=== PATIENT | male | born 1960 | race Caucasian/White ===

== ENCOUNTER 2017-08-14 17:56 | Emergency (ER) | payer OTHER ==
[~2017-08-14] VITALS: Ht 177.8 cm; Wt 88.9 kg
[~2017-08-14 17:56] MED LIST: BACTRIM DS TAB1 EACH PO; CELEXA 20 MG TA20 MG; FLUCONAZOLE 10100 MG; NORCO 5-325 TA1 EACH PO; RAYTAZ; XANAX 0.5 MG0.5 M1; [UNRECOGNIZED DRUG - CODE]
[2017-08-14 18:01] VITALS: BP 112/83
[2017-08-14] MEDS ORDERED: PERCOCET 5-3251 EACH PO (18:54)
== END 2017-08-14 19:05 | disposition home or self-care (01) ==
LOC: ER 17:56
DX: S93.602A Unspecified sprain of left foot, initial encounter (principal); X58.XXXA Exposure to other specified factors, initial encounter; Y93.89 Activity, other specified; Y92.89 Other specified places as the place of occurrence of the external cause; Y99.8 Other external cause status; Z87.01 Personal history of pneumonia (recurrent); Z88.1 Allergy status to other antibiotic agents; Z88.8 Allergy status to other drugs, medicaments and biological substances

== ENCOUNTER 2018-06-04 20:20 | Inpatient (IN) | payer OTHER ==
[~2018-06-04] VITALS: Ht 177.8 cm; Wt 73.5 kg
[~2018-06-04 20:20] MED LIST changes: +PERCOCET 5-3251 EACH PO
[2018-06-04 20:21] VITALS: BP 140/89
[2018-06-04 21:00] LABS: URINE BLOOD NEGATIVE (Negative); URINE CLARITY CLEAR; URINE COLOR YELLOW; URINE GLUCOSE-RANDOM* NEGATIVE (Negative); URINE KETONES TRACE (Negative); URINE LEUKOCYTES-REFLEX NEGATIVE (Negative); URINE NITRITE-REFLEX NEGATIVE (Negative); URINE PROTEIN (DIPSTICK) NEGATIVE (Negative); URINE SPECIFIC GRAVITY >= 1.030 (1.005-1.035)
[2018-06-04 21:04] LABS: ICTOTEST (BILI CONFIRMATORY) Negative (Negative); URINE BILIRUBIN NEGATIVE (Negative)
[2018-06-04] MEDS ORDERED: DURAGESIC1 EACH TRANSDERM (21:04)
[2018-06-04 21:59] LABS: HEMOGLOBIN 13.7 gm/dL (14.0-18.0); MCH 31.7 pg (26.0-34.0); MCHC 34.3 g/dL (28.0-37.0); MCV 92.3 fL (80.0-100.0); RBC 4.33 mil/uL (4.50-6.00); RDW 12.4 % (10.5-14.5); WBC 6.4 thou/uL (4.0-11.0)
[2018-06-04 22:04] LABS: ANION GAP 12 mmol/L (7-16); BUN 45 mg/dL (7-18); CHLORIDE 99 mmol/L (98-107); CO2 25 mmol/L (21-32); CREATININE 3.2 mg/dL (0.7-1.3); GLUCOSE 94 mg/dL (74-106); SODIUM 136 mmol/L (136-145)
[2018-06-04] MEDS ORDERED: DESCOVY 200-251 EACH PO (22:05)
[2018-06-04] MEDS ORDERED: MELATONIN3 MG PO (22:06)
[2018-06-04] MEDS ORDERED: REMERON15 MG PO (22:06)
[2018-06-04] MEDS ORDERED: MUCINEX600 MG PO (22:07)
[2018-06-04] MEDS ORDERED: ZYPREXA2.5 MG PO (22:07)
[2018-06-04] MEDS ORDERED: POTASSIUM20 PO (22:08)
[2018-06-04] MEDS ORDERED: OMEPRAZOLE40 MG PO (22:08)
[2018-06-04] MEDS ORDERED: PREZCOBIX 8001 EACH PO (22:09)
[2018-06-04] MEDS ORDERED: VISTARIL 25 MG25 M1 PO (22:10)
[2018-06-04] MEDS ORDERED: ZOFRAN ODT4 MG DISSOLVE (22:11)
[2018-06-04 22:17] LABS: ALBUMIN 4.9 g/dL (3.4-5.0); LIPASE 62 U/L (73-393); SGOT 68 U/L (15-37); SGPT 35 U/L (30-65); TOTAL BILIRUBIN 1.8 mg/dL (<0.1-1.0); TOTAL PROTEIN 8.1 g/dL (6.4-8.2); TROPONIN-I <0.06 ng/mL (<0.06)
[2018-06-05] MEDS ORDERED: NORCO 10-325 T1 EACH PO (02:28)
[2018-06-05 02:34] VITALS: BP 101/55
[2018-06-05] MEDS ORDERED: ADVAIR HFA 230M12 GM INH (03:14)
[2018-06-05] MEDS ORDERED: PROAIR HFA8.5 GM INH (03:17)
[2018-06-05 04:11] VITALS: BP 112/70
--- NOTE | 2018-06-05 04:52 | NUR ---
PT WAS ADMITTED TO THE UNIT FROM THE ER IN A STABLE CONDITION.ADMISSION HX, ASSESSMENT COMPLETED.PT UP ADLIB IN ROOM.C/O NAUSEA,MANAGED WITH IV MED.PT RESTING ON HIS BED AT THIS TIME.CALL LIGHT WITHIN REACH.
[2018-06-05 05:19] LABS: MCH 31.6 pg (26.0-34.0); MCHC 32.5 g/dL (28.0-37.0); RBC 3.8 mil/uL (4.50-6.00); RDW 12.8 % (10.5-14.5); WBC 3.9 thou/uL (4.0-11.0)
[2018-06-05 05:30] LABS: MCV 97.3 fL (80.0-100.0)
[2018-06-05 05:45] LABS: CREATININE 2.2 mg/dL (0.7-1.3)
[2018-06-05 07:40] VITALS: BP 131/74
--- NOTE | 2018-06-05 14:35 | NUR ---
ASSESMENT COMPLETED. VSS. A/O. PAIN MANAGED BY MEDS ORDERED. NO NOTED SOA. NO NV. UP AD ARMANI. PT RESTING IN BED APPEARS COMFORTABLE. WILL CONT. TO MONITOR.
[2018-06-05 20:57] VITALS: BP 141/69
--- NOTE | 2018-06-05 22:34 | NUR ---
ASSUMED PT CARE 1899. PT ALERT AND ORIENTED. REASSESSMENT COMPLETE. VSS. PT DENIES N/V, PAIN AT THIS TIME. IV DRESSING C/D/I, NO SIGNS OF INFILTRATION. PT RESTING COMFORTALY IN BED. CALL LIGHT AND PERSONAL BELONINGS WITHIN REACH. WILL CONTINUE POC UNTIL EOS.
[2018-06-06 05:50] VITALS: BP 142/76
[2018-06-06 07:42] VITALS: BP 126/64
[2018-06-06 10:01] LABS: HEMATOCRIT 37.9 % (42.0-52.0); MCH 31.7 pg (26.0-34.0); MCHC 34.2 g/dL (28.0-37.0); MCV 92.4 fL (80.0-100.0); RBC 4.1 mil/uL (4.50-6.00); RDW 12.4 % (10.5-14.5); WBC 3.6 thou/uL (4.0-11.0)
[2018-06-06 10:10] LABS: CALCIUM 8.2 mg/dL (8.5-10.1); MAGNESIUM 1.7 mg/dL (1.8-2.4); POTASSIUM 3.9 mmol/L (3.5-5.1)
--- NOTE | 2018-06-06 10:44 | NUR ---
ASSUMED CARE OF PT AT 0700. ASSESSMENT COMPLETED. A&O,X4. C/O ABD PAIN AND INTERMITTENT NAUSEA, MEDS GIVEN ORDERED. REPORTING NEW/WORSENING LEFT FOREARM AND WRIST REDNESS, SWELLING, BLISTERS. PHYSICIAN NOTIFIED AND AWARE. NO OTHER SKIN CONCERNS. ROOM AIR. DENIES SOA OR CHEST PAIN. PT UP AD ARMANI. PT IN STABLE CONDITION. WILL CONTINUE TO MONITOR.
[2018-06-06] MEDS ORDERED: BACTRIM DS TAB1 EACH PO ×2 (12:51→13:23)
[2018-06-06] MEDS ORDERED: ZOFRAN ODT4 MG DISSOLVE (13:13)
--- NOTE | 2018-06-06 13:24 | HC ---
[facility] [place] [address] CONSULTATION Name: NICK MCINTOSH Room #: 422-P [facility] IN M.R.#: [id number] Admission: 06/05/18 ������������������ Attend Phys: Holden Sandoval MD Discharge: ������������������ Date of : 64 Report #: [id number] THIS REPORT FOR: //name// CC: Holden Land[facility] DATE OF SERVICE: 06/05/2018 TYPE OF REPORT: Infectious diseases consultation. HISTORY OF PRESENT ILLNESS: The patient was a 58-year old with underlying AIDS and hepatitis C, who [facility]. He has had approximately a 60-pound weight loss over the last year. Presents now with right upper quadrant pain, nausea and vomiting for the last 2 weeks. He has had temperature up to 101 degrees. No diarrhea. He does smoke cigarettes. No cough or sputum production. Appetite has been poor. No dysuria or frequency. No blood in his stool or urine. Denies any rashes or decubiti. Denies any adenopathy. He has been on 4-drug antiretroviral program for the last 3 years. He notes a CD4 count now is greater than 150 with undetectable HIV RNA. He denies any other opportunistic infections. PAST MEDICAL HISTORY: Hypertension, cryptococcal meningitis, pneumonia, Kaposi sarcoma, left femur fracture, C. difficile colitis, thrombocytopenia, vascular dementia, psychosis, depression, chronic pain syndrome, gastroesophageal reflux and tobacco use. FAMILY HISTORY: Lymphoma, colon cancer. SOCIAL HISTORY: Smoker of cigarettes, past alcohol use and past IV drug use and MSM. ALLERGIES: ABACAVIR, PIPERACILLIN, CEFAZOLIN, VANCOMYCIN, AMLODIPINE and TORADOL. MEDICATIONS: As noted on his MAR, which was reviewed including Prezcobix. I see no pneumocystis prophylaxis or MAC prophylaxis. I do not see any cryptococcal prophylaxis. REVIEW OF SYSTEMS: Ten-point review was negative other than what is described above. PHYSICAL EXAMINATION: VITAL SIGNS: Afebrile and hemodynamically stable. GENERAL: He was alert and cooperative. He was ambulatory. SKIN: Without rash or decubitus. No palpable adenopathy. HEENT: Eyes, without scleral icterus. Mouth [place] [address] CONSULTATION Name: NICK MCINTOSH Room #: 422-P [facility] IN .R.#: [id number] Admission: 06/05/18 ������������������ Attend Phys: Holden Sandoval MD Discharge: ������������������ Date of : 64 Report #: [id number] edentulous. NECK: Supple. No thyromegaly or mass. LUNGS: Clear. HEART: Regular, without murmur, gallop or rub. ABDOMEN: Soft and nontender. No hepatosplenomegaly or mass appreciated. EXTREMITIES: Without cyanosis, clubbing or edema. Cranial nerves intact. Strength in his upper and lower extremities normal. Sensation was diminished in his toes. Mood normal. LABORATORY STUDIES: Hemoglobin 13.7; white count 6.4 and platelet count 223,000. Creatinine initially 3.2 and now down to 2.2, sodium 134, potassium 4 and bicarbonate 25. Bilirubin 1.8. Liver function test otherwise normal. Urinalysis negative. RADIOLOGICAL DATA: Chest x-ray clear. Electrocardiogram normal. CT scan of the abdomen, fatty liver, right lower lobe nodule, 1.4 x 0.9 cm, noncalcified. No other intraabdominal findings. No ureteral obstruction. IMPRESSION: 1. A 58-year old with acquired immunodeficiency syndrome, on 4-drug antiretroviral program. He reports CD4 count over 150. Presents now with low-grade fever, nausea, vomiting and weight loss. In addition, have finding of a right lower lobe pulmonary nodule. The source of his weight loss is yet to be determined. We would consider infection versus malignancy versus human immunodeficiency virus wasting syndrome, although this would be less likely while on antiretroviral program and reportedly good control. 2. Acute kidney injury. RECOMMENDATIONS: We will need to hold his antiretroviral program until his renal function improves. If it does not improve within the next several days to a week, we will need to change his antiretroviral program and get him off of tenofovir. We will also screen further with CT scan of the chest with plan for a PET scan. Continue fluids and repeat his renal function test. Further laboratory studies including TB, fungal testing, Mycobacterium avium testing. We will continue to monitor for fever. Hold systemic antibiotics at this point. ��������������������������������������������� <ELECTRONICALLY SIGNED> ���������������������������������������� By: Jh Kimball MD ��������������������������������������������� 06/06/18 1324 1547 [id number] Jh Kimball MD /nt
--- NOTE | 2018-06-06 13:26 | EKG ---
[address] [place] [address] ELECTROCARDIOGRAM REPORT Name: NICK MCINTOSH Room #: 422- ADM IN M.R.#: [id number] ������������������ Admission: 06/05/18 ������������������ Attend Phys: Holden Sandoval MD Discharge: ������������������ Date of : 64 Report #: [id number] ����������������������������������������������������������������� [id number] THIS REPORT FOR: //name// [facility] ED Test Date: 2018-06-04 Test Time: 20:35:13 Pat Name: NICK MCINTOSH Department: Room: [facility] Gender: M Fryline Attendant: THONY : 1960 Requested By: Marilyn Medina Order Number: [id number] MD: Augusto Linda Measurements Intervals [place] Rate: 88 P: 37 [place]: 181 QRS: -7 QRSD: 93 T: 58 QT: 368 QTc: 446 Interpretive Statements Sinus rhythm Normal tracing Compared to ECG 09/03/2011 09:59:10 No significant changes Electronically Signed On 06-06-2018 13:26:22 CDT by Augusto Linda [email or web address] ��������������������������������������������� <ELECTRONICALLY SIGNED> ���������������������������������������� By: Augusto Linda MD, [facility] ��������������������������������������������� 06/06/18 1326 34 34 Augusto Linda MD, [facility] /EPI
[2018-06-06 13:30] VITALS: BP 126/64
[2018-06-07 08:06] LABS: CD3 % 62.5 % (57.5-86.2); CD4 % 14.5 % (30.8-58.5); CD4:CD8 0.31 (0.92-3.72); CD8 % 46.2 % (12.0-35.5)
[2018-06-08 17:10] LABS: HISTOPLASMA MYCELIAL-ID Negative (Negative)
[2018-06-09 00:06] LABS: HISTOPLASMA MYCELIAL-CF Negative (Neg:<1:2)
== END 2018-06-06 15:12 | disposition home or self-care (01) | DRG 977 ==
LOC: ER 20:20 → EROBS 06-05 00:57 → 4E 06-05 02:51
PROVIDERS: Nurse Practitioner Family; Specialist; Student in an Organized Health Care Education/Training Program; ADMIT Internal Medicine
DX: K52.9 Noninfective gastroenteritis and colitis, unspecified (principal); B20 Human immunodeficiency virus [HIV] disease; N17.9 Acute kidney failure, unspecified; C46.9 Kaposi's sarcoma, unspecified; I10 Essential (primary) hypertension; G89.4 Chronic pain syndrome; F01.50 Vascular dementia, unspecified severity, without behavioral disturbance, psychotic disturbance, mood disturbance, and anxiety; B18.2 Chronic viral hepatitis C; K21.9 Gastro-esophageal reflux disease without esophagitis; F32.9 Major depressive disorder, single episode, unspecified; R59.1 Generalized enlarged lymph nodes; F17.210 Nicotine dependence, cigarettes, uncomplicated; R91.1 Solitary pulmonary nodule; Z87.01 Personal history of pneumonia (recurrent); Z88.1 Allergy status to other antibiotic agents; Z88.8 Allergy status to other drugs, medicaments and biological substances; Z80.0 Family history of malignant neoplasm of digestive organs
CPT/HCPCS: 10084

== ENCOUNTER 2018-10-14 17:11 | Emergency (ER) | payer OTHER ==
[~2018-10-14] VITALS: Ht 177.8 cm; Wt 67.1 kg
--- NOTE | ~2018-10-14 | EMS ---
[address] [address] EMS Patient Care Report Name: NICK MCINTOSH Room #: DEP KRIS Kirk#: [id number] Admission: 10/14/18 Attend Phys: Discharge: 10/14/18 Date of : 64 Report #: [id number] THIS REPORT FOR: //name// Report Transmitted: 10/18/2018 08:54 EMS Care Summary [place]/[facility] Incident [id number] @ 10/14/2018 16:50 Incident Location [id number] [place] [address] RD [address] Patient ANKITA MCINTOSH Male, 58 Years 1960 Patient Address [id number] [place] [address] [address] [place] [address] Patient History Hepatitis C (Without Hepatic Coma),Human Immunodeficiency Virus Disease (HIV/AIDS),Hip Fracture, Patient Allergies Other drug allergy, Patient Medications Vicodin, Chief Complaint VOMITING Disposition Transported No Lights/[place] Dispatch Reason Chest Pain (Non-Traumatic) Transported To [facility] Narrative RESPONDED TO SICK THAT TURNED INTO CHEST PAIN AT [facility]. UPON ARRIVAL PT MET EMS OUTSIDE, ALERT AND ORIENTED. FF REPORTS PT HAS [address] [address] EMS Patient Care Report Name: NICK MCINTOSH Room #: DEP ER Reagan#: [id number] Admission: 10/14/18 Attend Phys: Discharge: 10/14/18 Date of : 64 Report #: [id number] HAD ISSUES WITH VOMITING SINCE MAY, PT REPORTS ACID REFLUX IN HIS CHEST SINCE YESTERDAY THAT IS BOTHERING HIM AND THAT IS WHY HE CALLED AN AMBULANCE TODAY. PT DENIES SOA OR CARDIAC CHEST PAIN. PT WALKED TO AMBULANCE. VITALS AND 3 LEAD OBTAINED. PT TRANSPORTED NONEMERGENCY TO [facility]. PT WALKED FORM AMBULANCE TO BED. REPORT GIVEN TO NURSE. Initial Vitals @16:59P: 76,SpO2: 98, @17:04P: 76,R: 14,BP: 124/76,CO: 1,SpO2: 98, @16:59P: 78,R: 14,BP: 153/83,Pain: 2/10,GCS: 15,CO: 0,SpO2: 95,Revised Trauma: 12, Assessments @16:58MENTAL:Time Oriented,Person Oriented,Event Oriented,Place Oriented,SKIN:HEENT:Head/Face: No Abnormalities,Neck/Airway: No Abnormalities,LUNG SOUNDS:General: Nausea,General: Vomiting,ABDOMEN:General: Nausea,General: Vomiting,PELVIS//GI:No Abnormalities,EXTREMITIES:Left Arm: No Abnormalities,Right Arm: No Abnormalities,Left Leg: No Abnormalities,Right Leg: No Abnormalities,PULSE:NEURO:No Abnormalities,@17:05MENTAL:No Abnormalities,SKIN:No Abnormalities,HEENT:Head/Face: No Abnormalities,Eyes: No Abnormalities,Neck/Airway: No Abnormalities,LUNG SOUNDS:General: No Abnormalities,Left Upper: No Abnormalities,Right Upper: No Abnormalities,Left Lower: No Abnormalities,Right Lower: No Abnormalities,ABDOMEN:General: No Abnormalities,Left Upper: No Abnormalities,Right Upper: No Abnormalities,Left Lower: No Abnormalities,Right Lower: No Abnormalities,PELVIS//GI:No Abnormalities,EXTREMITIES:Left Arm: No Abnormalities,Right Arm: No Abnormalities,Left Leg: No Abnormalities,Right Leg: No Abnormalities,PULSE:NEURO:No Abnormalities, Impression Gastro-esophogeal reflux disease (GERD) Procedures @16:58ALS AssessmentResponse: UnchangedSucceeded@17:053-Lead ECGResponse: UnchangedSucceeded Timeline 16:48,Call Received 16:48,Dispatch Notified 16:50,Dispatched 16:51,En Route 16:57,On Scene 16:58,At Patient 16:58,ALS Assessment,Response: UnchangedSucceeded, 16:59,BP: 153/83 M,PULSE: 78,RR: 14 R,SPO2: 95 Ox,ETCO2: ,BG: ,PAIN: 2,GCS: 15, 16:59,BP: / M,PULSE: 76,RR: R,SPO2: 98 Ox,ETCO2: ,BG: ,PAIN: ,GCS: , [facility] [address] [place] [address] EMS Patient Care Report Name: NICK MCINTOSH Room #: DEP Reagan#: [id number] Admission: 10/14/18 Attend Phys: Discharge: 10/14/18 Date of : 64 Report #: [id number] 16:59,Depart Scene 17:04,BP: 124/76 M,PULSE: 76,RR: 14 R,SPO2: 98 Ox,ETCO2: ,BG: ,PAIN: ,GCS: , 17:05,3-Lead ECG,Response: UnchangedSucceeded, 17:09,At Destination 17:30,Call Closed Disclaimer v1.1 Copyright 2019 [employer] This EMS Care Summary contains data elements from the applicable legal record (which may be displayed differently). It is designed to provide pertinent information for the following purposes: continuity of care, clinical quality, and state data reporting. The complete legal record is available to ED staff and administrators of the receiving hospital in [employer] Patient Tracker. All data is provided "as is."
[~2018-10-14 17:11] MED LIST changes: +ADVAIR HFA 230M12 GM INH; +DESCOVY 200-251 EACH PO; +DURAGESIC1 EACH TRANSDERM; +MELATONIN3 MG PO; +MUCINEX600 MG PO; +NORCO 10-325 T1 EACH PO; +OMEPRAZOLE40 MG PO; +POTASSIUM20 PO; +PREZCOBIX 8001 EACH PO; +PROAIR HFA8.5 GM INH; +REMERON15 MG PO; +VISTARIL 25 MG25 M1 PO; +ZOFRAN ODT4 MG DISSOLVE; +ZYPREXA2.5 MG PO
[2018-10-14 17:49] LABS: ABSOLUTE NEUTROPHILS 1.8 thou/uL (1.4-8.2); EOSINOPHILS 3.3 % (0.0-3.0); HEMATOCRIT 37.5 % (42.0-52.0); HEMOGLOBIN 12.9 gm/dL (14.0-18.0); LYMPHOCYTES 43.3 % (24.0-44.0); MCH 32.3 pg (26.0-34.0); MCHC 34.4 g/dL (28.0-37.0); MCV 94.1 fL (80.0-100.0); PLATELET COUNT 188 thou/uL (150-400); POLYS 44.4 % (36.0-66.0); RBC 3.99 mil/uL (4.50-6.00); RDW 13.2 % (10.5-14.5); WBC 4.1 thou/uL (4.0-11.0)
[2018-10-14 17:53] LABS: CREATININE 1.1 mg/dL (0.7-1.3); POTASSIUM 3.4 mmol/L (3.5-5.1)
[2018-10-14 18:00] LABS: ALBUMIN 3.8 g/dL (3.4-5.0); TOTAL BILIRUBIN 0.5 mg/dL (<0.1-1.0); TOTAL PROTEIN 6.8 g/dL (6.4-8.2)
[2018-10-14 18:20] LABS: URINE BLOOD NEGATIVE (Negative); URINE CLARITY CLEAR; URINE COLOR YELLOW; URINE GLUCOSE-RANDOM* NEGATIVE (Negative); URINE KETONES NEGATIVE (Negative); URINE LEUKOCYTES-REFLEX NEGATIVE (Negative); URINE NITRITE-REFLEX NEGATIVE (Negative); URINE PROTEIN (DIPSTICK) TRACE (Negative); URINE SPECIFIC GRAVITY >= 1.030 (1.005-1.035)
[2018-10-14 18:21] LABS: ICTOTEST (BILI CONFIRMATORY) Negative (Negative); URINE BILIRUBIN NEGATIVE (Negative)
[2018-10-14] MEDS ORDERED: MELATONIN3 MG PO (18:33)
[2018-10-14] MEDS ORDERED: DRONABINOL5 MG PO (18:33)
[2018-10-14] MEDS ORDERED: PRILOSEC OTC20 MG PO (19:19)
[2018-10-14] MEDS ORDERED: ONDANSETRON ODT8 MG PO (19:19)
[2018-10-14 20:50] VITALS: BP 125/72
--- NOTE | 2018-10-15 18:08 | EKG ---
[place] [address] [facility] [place] [address] ELECTROCARDIOGRAM REPORT Name: NICK MCINTOSH [id number] Admission: 10/14/18 Attend Phys: Discharge: 10/14/18 Date of : 64 Report #: [id number] THIS REPORT FOR: //name// [facility] ED Test Date: 2018-10-14 Test Time: 18:52:56 Pat Name: NICK MCINTOSH Department: Room: Gender: M Interpretive Program Coordinator: WG : 1960 Requested By: Jh Riggs Order Number: [id number] MD: Augusto Linda Measurements Intervals [place] Rate: 47 P: 13 [place]: 176 QRS: 19 QRSD: 93 T: 57 QT: 442 QTc: 391 Interpretive Statements Sinus bradycardia Compared to ECG 06/04/2018 20:35:13 Heart rate has slowed Electronically Signed On 10-15-2018 18:08:12 CDT by Augusto Linda [email or web address] <ELECTRONICALLY SIGNED> By: Augusto Linda MD, [facility] 10/15/18 1808 185 51 Augusto Linda MD, [facility] /EPI
== END 2018-10-14 20:56 | disposition home or self-care (01) ==
LOC: ER 17:11
PROVIDERS: Emergency Medicine
DX: R11.2 Nausea with vomiting, unspecified (principal); B19.20 Unspecified viral hepatitis C without hepatic coma; R10.13 Epigastric pain; I10 Essential (primary) hypertension; G89.4 Chronic pain syndrome; K21.9 Gastro-esophageal reflux disease without esophagitis; F17.210 Nicotine dependence, cigarettes, uncomplicated; Z88.1 Allergy status to other antibiotic agents; Z88.8 Allergy status to other drugs, medicaments and biological substances; Z88.6 Allergy status to analgesic agent; Z79.899 Other long term (current) drug therapy

== ENCOUNTER 2018-12-24 10:33 | Emergency (ER) | payer OTHER ==
[~2018-12-24] VITALS: Ht 172.7 cm; Wt 65.8 kg
[~2018-12-24 10:33] MED LIST changes: +DRONABINOL5 MG PO; +ONDANSETRON ODT8 MG PO; +PRILOSEC OTC20 MG PO
[2018-12-24 12:03] LABS: ABSOLUTE NEUTROPHILS 2.6 thou/uL (1.4-8.2); BASOPHILS 0.7 % (0.0-2.0); EOSINOPHILS 1.4 % (0.0-3.0); HEMATOCRIT 37.9 % (42.0-52.0); HEMOGLOBIN 12.7 gm/dL (14.0-18.0); LYMPHOCYTES 32.9 % (24.0-44.0); MCH 32.2 pg (26.0-34.0); MCHC 33.6 g/dL (28.0-37.0); MCV 95.7 fL (80.0-100.0); MONOCYTES 8.9 % (1.0-8.0); PLATELET COUNT 209 thou/uL (150-400); POLYS 56.1 % (36.0-66.0); RBC 3.96 mil/uL (4.50-6.00); RDW 12.3 % (10.5-14.5); WBC 4.7 thou/uL (4.0-11.0)
[2018-12-24 12:13] LABS: CALCIUM 9.1 mg/dL (8.5-10.1); POTASSIUM 4.2 mmol/L (3.5-5.1)
[2018-12-24 12:18] LABS: URIC ACID* 5.3 mg/dL (2.6-7.2)
[2018-12-24] MEDS ORDERED: NORCO 5-325 TA1 EAC1 PO (12:19)
[2018-12-24 13:04] VITALS: BP 119/79
== END 2018-12-24 13:34 | disposition home or self-care (01) ==
LOC: ER 10:33
PROVIDERS: Physician Assistant
DX: S92.355A Nondisplaced fracture of fifth metatarsal bone, left foot, initial encounter for closed fracture (principal); I10 Essential (primary) hypertension; K21.9 Gastro-esophageal reflux disease without esophagitis; F32.9 Major depressive disorder, single episode, unspecified; F17.210 Nicotine dependence, cigarettes, uncomplicated; Z21 Asymptomatic human immunodeficiency virus [HIV] infection status; Z88.0 Allergy status to penicillin; Z88.1 Allergy status to other antibiotic agents; Z88.6 Allergy status to analgesic agent; Z88.8 Allergy status to other drugs, medicaments and biological substances; W01.0XXA Fall on same level from slipping, tripping and stumbling without subsequent striking against object, initial encounter; Y93.89 Activity, other specified; Y92.128 Other place in nursing home as the place of occurrence of the external cause; Y99.8 Other external cause status

== ENCOUNTER 2019-03-04 05:53 | Inpatient (IN) | payer OTHER ==
[2019-02-24 10:40] LABS: ABSOLUTE NEUTROPHILS 4.2 thou/uL (1.4-8.2); BASOPHILS 0.4 % (0.0-2.0); EOSINOPHILS 0.2 % (0.0-3.0); HEMATOCRIT 40.2 % (42.0-52.0); HEMOGLOBIN 13.6 gm/dL (14.0-18.0); LYMPHOCYTES 20.8 % (24.0-44.0); MCH 32.1 pg (26.0-34.0); MCHC 33.7 g/dL (28.0-37.0); MCV 95.3 fL (80.0-100.0); MONOCYTES 4.9 % (1.0-8.0); PLATELET COUNT 233 thou/uL (150-400); POLYS 73.7 % (36.0-66.0); RBC 4.22 mil/uL (4.50-6.00); RDW 12.7 % (10.5-14.5); WBC 5.6 thou/uL (4.0-11.0)
[2019-02-24 10:51] LABS: ALBUMIN 4.3 g/dL (3.4-5.0); CALCIUM 9.4 mg/dL (8.5-10.1); CREATININE 1.1 mg/dL (0.7-1.3); POTASSIUM 4.1 mmol/L (3.5-5.1); TOTAL BILIRUBIN 0.3 mg/dL (<0.1-1.0); TOTAL PROTEIN 7.3 g/dL (6.4-8.2)
[2019-02-24 10:52] LABS: APTT 26.6 Seconds (24.5-32.8); PROTIME 10.2 Seconds (9.3-11.4)
[2019-02-24 14:34] LABS: URINE BILIRUBIN NEGATIVE (Negative); URINE BLOOD NEGATIVE (Negative); URINE CLARITY CLEAR; URINE COLOR YELLOW; URINE GLUCOSE-RANDOM* NEGATIVE (Negative); URINE KETONES NEGATIVE (Negative); URINE LEUKOCYTES-REFLEX NEGATIVE (Negative); URINE NITRITE-REFLEX NEGATIVE (Negative); URINE PROTEIN (DIPSTICK) NEGATIVE (Negative); URINE SPECIFIC GRAVITY >= 1.030 (1.005-1.035); URINE UROBILINOGEN 0.2 E.U./dl (0.2-1.0)
--- NOTE | 2019-02-24 16:10 | EKG ---
[place] [address] [address] [address] ELECTROCARDIOGRAM REPORT Name: NICK MCINTOSH Room #: PRE IN ..#: [id number] Admission: Attend Phys: Kirill Saucedo MD Discharge: Date of : 64 Report #: [id number] THIS REPORT FOR: //name// [facility] Test Date: 2019-02-24 Test Time: 10:33:02 Pat Name: NICK MCINTOSH Department: Room: Gender: M Stunt Man: HELENA ACE : 1960 Requested By: Kirill Saucedo Order Number: [id number] MD: Jordan Garza Measurements Intervals [place] Rate: 88 P: 50 [place]: 158 QRS: -24 QRSD: 82 T: 62 QT: 339 QTc: 410 Interpretive Statements Sinus rhythm Consider left ventricular hypertrophy Anterior ST elevation, probably due to LVH Compared to ECG 10/14/2018 18:52:56 Left ventricular hypertrophy now present ST (T wave) deviation now present Sinus bradycardia no longer present Electronically Signed On 02-24-2019 16:10:26 MARINE EQUIPMENT ENGINEER by Jordan Garza [email or web address] <ELECTRONICALLY SIGNED> By: Jordan Garza MD 02/24/19 1610 1033 1033 Jordan Garza MD /EPI
[2019-03-04] VITALS (28 sets, daily range): BP systolic 124–154; BP diastolic 62–87
[~2019-03-04] VITALS: Ht 177.8 cm; Wt 64.4 kg
--- NOTE | ~2019-03-04 | O ---
[facility] [place] [address] OPERATIVE REPORT Name: NICK MCINTOSH Room #: 215-P [facility] IN M.R.#: [id number] Admission: 03/04/19 Attend Phys: Kirill Saucedo MD Discharge: 03/11/19 Date of : 64 Report #: [id number] THIS REPORT FOR: //name// CC: FAM unknown Kirill Saucedo DATE OF SERVICE: 03/04/2019 PREOPERATIVE DIAGNOSIS: Pulmonary nodule, right lower lobe. 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 OPERATION: Bronchoscopy, right video-assisted thoracoscopy, right thoracotomy with lower lobectomy. SURGEON: Kirill Saucedo MD CATTLE KILLER: BRITTNEY Catalan. ANESTHESIA: General. INDICATIONS: The patient is a 59-year-old, seen for Dr. Pepper. The patient has a right lower lobe pulmonary nodule that has been seen to grow on serial x-rays. FINDINGS AND TECHNIQUE: After general anesthesia was established, flexible diagnostic bronchoscopy was performed. No endobronchial lesions were noted. Double lumen endotracheal tube was placed and the patient was positioned with right side up. Exposure was obtained through typical video-assisted thoracoscopy ports. I identified what I thought was a lesion within the pulmonary parenchyma in the lower lobe, but I was not confident enough to perform a wedge resection. Therefore, exposure was extended to perform a posterolateral thoracotomy using a rib sparing, nerve sparing approach and entering through the fifth interspace. The lesion in the lower lobe was ascertained and then a wedge resection was done. This was submitted for frozen section and a diagnosis of malignancy was obtained. With this information, the lobectomy was performed. The fissures were exploited to expose the interlobar pulmonary artery. Pulmonary arterial branches to the lower lobe were ligated and divided. Pulmonary venous branches to the lower lobe were stapled and divided. The bronchus was circum-dissected and stapled and the lobe was submitted for pathologic consideration. [facility] [address] [place] [address] OPERATIVE REPORT Name: NICK MCINTOSH Room #: 215-P [facility] IN .R.#: [id number] Admission: 03/04/19 Attend Phys: Kirill Saucedo MD Discharge: 03/11/19 Date of : 64 Report #: [id number] Bronchial stump was tested and found to be secure. Middle lobe was tacked to lower lobe after hilar lymph nodes were harvested for permanent pathology. Two chest tubes were brought through separate stab wounds and the chest was closed to maintain the nerve sparing, rib sparing approach. The patient tolerated all of this well and was taken to the recovery area in good condition. All counts reported as correct. By: [id number] Kirill Saucedo MD /nt
[~2019-03-04 05:53] MED LIST changes: +ACETAMINOPHEN500 M1 PO; +DURAGESIC1 EAC2 TOP; +HYDROCODON-ACE1 EAC8 PO; +MARINOL5 MG PO; +NORCO 5-325 TA1 EAC1 PO; +OMEPRAZOLE 20 M20 M1 PO; +ZOFRAN8 MG PO
--- NOTE | 2019-03-04 07:24 | NUR ---
CONSULTED TO PLACE A PICC PRE-OP. THIS PATIENT WILL BE GOING TO IVU POST OP AND A TRIPLE LUMEN PICC WAS CHOOSEN. THE LEFT ARM WAS CHOOSEN PER PATIENTS REQUEST. THE LEFT UPPER ARM BASILIC VEIN WAS WIDLEY PATENT AND SHALLOW. A #5F TRIPLE LUMEN PICC WAS TRIMMED TO 48CM AND PLACED PER HOSPITAL POLICY AFTER A BEDSIDE TIMEOUT WAS COMPLETED. A STAT CHEST XRAY WAS ORDERED AND CONFIRMED TO BE IN GOOD POSITION FOR USE BY DR. DICKINSON. LINE SECURED AND RELEASED FOR USE
--- NOTE | 2019-03-04 13:35 | NUR ---
Pt admitted to ICU from PACU. Pt came through PAC for scheduled surgery today with Dr Saucedo. Pt alert and oriented upon arrival. Pt reporting incisional pain and pain at chest tube site. MOTOR VEHICLE TECHNICIAN pump with Fentanyl infusing was started in the recovery room. Fentanyl infusing via a PICC line in the left upper arm. Sinus rhythm. Thoracotomy incision drsg is dry/intact. Right chest tube is patent to -20 cm of suction per [facility] drain. Requesting ice chips. Right radial arterial line on an armboard is positional and difficult to obtain accurate reading despite manipuation and flushing.
--- NOTE | 2019-03-04 15:39 | NUR ---
PT ADMITTED RELATED TO BRONCHOSCOPY,VIDEO ASSISTED THOROSCOPY, RIGHT LUNG. CM REVIEWED CHART AND SPOKE WITH CARE TEAM. CARE TEAM INDICATED THAT PT IS HIV POSITIVE AND THERE WERE TWO MEDICATIONS THAT WE AREN'T ABLE TO PROVIDE PT (PREZCOBIX AND DESCOVY). THEY ASKED FOR ASSISTANCE IN GETTING THESE MEDS FROM PT'S AL [facility]. CM MET WITH PT AT BEDSIDE. HE IS A&O X4. CM ROLE INTRODUCED. PT INDICATED HE LIVES AT [facility] AND HAD USED A CANE TO ASSIST WITH MOBILITY ACCESS RN. PT INDICATED HE WAS FINE WITH CM ASSISTING IN GETTING HIS MEDS FROM THE FACILITY. PT'S BROTHER/DPOA IS PRESENT AND WILLING TO PICK MEDS UP IF HE NEEDS TO. CM CALLED AND SPOKE WITH TALYA IVORY [facility] DIRECTOR AND SHE INDICATED THAT PT'S BROTHER COULD PICK THE TWO MEDS UP. SHE JUST ASKED THAT THE BOTTLES AND WHATEVER MEDICATION IS LEFT ARE RETURNED TO THEM UPON PT'S RETURN. PT'S BROTHER PT PICK MEDS UP AND BRING TO [facility]. PT INDICATED HE PLANS TO RETURN BACK TO [facility] ONCE MEDICALLY STABLE. CM TO FOLLOW INDICATED WITH DC PLANNING.
--- NOTE | 2019-03-04 19:15 | NUR ---
utilization management manager facilitated getting pt's home medications brought to the hospital. Pt's brother/DPOA picked them up and pharmacy verified the meds/dose. Pt signed the consent form provided by pharmacy for use of home medications which was placed on the chart and meds administered to the patient. Report given to RN assuming care. Arterial line will not flush. Oncoming RN aware and may dc,
[2019-03-04] MEDS ORDERED: PERCOCET 7.5-31 EAC1 PO (23:02)
[2019-03-05] VITALS (15 sets, daily range): BP systolic 105–139; BP diastolic 49–72
[2019-03-05 05:02] LABS: HEMATOCRIT 37.9 % (42.0-52.0); HEMOGLOBIN 12.5 gm/dL (14.0-18.0); MCH 31.9 pg (26.0-34.0); MCHC 32.9 g/dL (28.0-37.0); MCV 96.8 fL (80.0-100.0); RBC 3.91 mil/uL (4.50-6.00); WBC 11.3 thou/uL (4.0-11.0)
[2019-03-05 05:04] LABS: CALCIUM 8.7 mg/dL (8.5-10.1); POTASSIUM 4.7 mmol/L (3.5-5.1)
--- NOTE | 2019-03-05 07:30 | NUR ---
ASSUMED CARE OF PT AT 1900. PT ON FENTANYL COTTON CANDY MAKER PUMP SINCE SURGERY YESTERDAY. PT CONTINUED TO RATE PAIN 7-8 THROUGHOUT THE NIGHT. PT ENCOURAGED TO PUSH HIS COTTON CANDY MAKER BUTTON MORE OFTEN WHEN HE WAS HAVING PAIN AT THAT LEVEL. PT APPEARS RELAXED AND SAID HIS 8/10 PAIN WAS "NOT EXCRUCIATING". WILL CONTINUE TO MONITOR.
--- NOTE | 2019-03-05 12:22 | NUR ---
ASSUMED CARE @ 0700 03/05/18, PT ASSESSMENTS AND VSS COMPLETE PER ICU PROTOCOL. DR CONNOLLY HERE TO ROUND, CCU ORDERS PLACED, REPORT GIVEN TO JAYY MALIK, PT TRANSPORTED PER WHEELCHAIR WITH THE AID OF NURSING STAFF. COREMAKER FLOOR CLEARED AT BEDSIDE WITH RECIEVING HELENA HOPE.
--- NOTE | 2019-03-05 12:42 | NUR ---
TO UNIT FROM ICU ROOM 245, REPORT FROM RN. ORIENTED TO UNIT. CT TO -20CM WALL SUCTION. FENTANYL FISHERIES MANAGEMENT BIOLOGIST, BUTTON REACHABLE. GIVEN URINAL; HASN'T VOIDED SINCE MICHAEL NOEL'Benita AT 1200. SR PER TELE. ROOM AIR. WILL CONTINUE TO FOLLOW CLOSELY.
[2019-03-06 00:18] VITALS: BP 117/73
--- NOTE | 2019-03-06 04:48 | NUR ---
ASSUMED PT CARE AT 1900. VSS, GETS CORY N THE 50s WITH SLEEP. PT IS WPRRIED THAT HE WOULD NOT HEAL WELL OR SOMETHING MAY GO WRONG, PT WAS REASSURED AND ENCOURAGED TO PRAY NEEDED. PAIN STILL MANAGED WITH ORACLE SOA CONSULTANT PUMP. PUMP CLEARED Q4 HOURS. CHEST TUBE IN PLACE, DRY SANGEUNOUS DRAINAGE ON TEGADERM DRESSING, DRESSING STILL INTACT. PT IS STABLE, NO FURTHER COMPLAINTS WILL CONTINUE TO MONITOR PER POC.
[2019-03-06 05:41] VITALS: BP 97/59
[2019-03-06 07:50] VITALS: BP 121/59
--- NOTE | 2019-03-06 11:45 | NUR ---
ASSUMED CARE AT 0700, SHIFT ASSESSMENT DONE, MEDS GIVEN, VSS. DENIES PAIN, NAUSEA, VOMIITNG. CHEST TUBE TO RIGHT BACK, SITE HAS DRY BLOODY DRAINAGE, DENIES ANY SOB THIS AM. DR CATHLEEN NOEL'S WALL SUCTION, IS ON WATER SEAL NOW. HAS A FENTTANYL FOOD PRODUCTION ASSOCIATE, SEE DOCUMENATION. NSR ON TELE. SURGICAL SITE CLEAN, TRY, INTACT. WILL CONTINUE TO ASSESS AND ASSIST WITH ADLs NEEDED.
[2019-03-06 12:00] VITALS: BP 103/63
[2019-03-06 16:00] VITALS: BP 118/77
[2019-03-06 17:25] LABS: CALCIUM 8.7 mg/dL (8.5-10.1); CREATININE 0.9 mg/dL (0.7-1.3); MAGNESIUM 1.8 mg/dL (1.8-2.4); POTASSIUM 4.1 mmol/L (3.5-5.1)
--- NOTE | 2019-03-06 19:21 | NUR ---
ASSUMED CARE OF PATIENT AT 1500 FROM HELENA ABDULLAHI. PATIENT RESTING COMFORTABLY IN BED WITH CHEST TUBE IN PLACE DRAINING TO GRAVITY. PATIENT DID SIT UP AT THE BEDSIDE FOR DINNER. PATIENT ON FENTANYL SUPERVISOR WALL MIRROR DEPARTMENT PUMP WITH PAIN CONSISTENTLY AT 6-7/10. PATIENT HAD INTERMITTENT EPISODES OF VTAC RUNS 2-[address] CONNOLLY NOTIFIED[address] STAT BMP AND MAG ORDERED AND WNL. PATIENT TO CONTINUE WITH POC.
[2019-03-06 19:58] VITALS: BP 111/58
[2019-03-07 03:54] VITALS: BP 115/58
--- NOTE | 2019-03-07 04:40 | NUR ---
NO OVERNIGHT EVENTS. PT. RESTED WELL THROUGHOUT THE NIGHT. ONE COMPLAINT OF NAUSEA THIS AM. ASSESSMENT AND VITAL SIGNS CHARTED. SEE CUSTOMER SERVICE ASSOCIATE DOCUMENTATION. CONTINUE TO FOLLOW POC. WILL CONTINUE TO MONITOR.
[2019-03-07 08:00] VITALS: BP 140/73
[2019-03-07 12:41] VITALS: BP 129/78
[2019-03-07 16:00] VITALS: BP 117/72
--- NOTE | 2019-03-07 17:07 | PATH ---
[facility] [place] [address] PATHOLOGY RPT PROCEDURE Name: ABDI OSEGUERA Room #: 215-P ADM IN M.R.#: [id number] Admission: 03/04/19 Date of : 64 Discharge: Report #: [id number] Path Case #: [id number] [facility] Accession Number: [id number] . 01 Material submitted: . PART A: lung - PULMONARY NODULE RIGHT LOWER LUNG LOBE - FS. Modifiers: right, lower lobe PART B: lung - RIGHT LOWER LOBE LUNG. Modifiers: right, lower lobe . 01 Clinical history: . Pulmonary nodule, right lower lung lobe. . 02 Frozen section diagnosis: . INTRAOPERATIVE CONSULTATION WITH FROZEN SECTION: (Dr. Yair Harvey) . FSA1. Right lower lobe pulmonary nodule: - Atypical lesion with neuroendocrine features - defer to permanent sections. . Findings relayed to Dr. Saucedo at the time of the procedure. (DANIELM:nish; 03/04/2019) . . FROZEN SECTION GROSS DESCRIPTION: A. Received fresh, labeled, "Abdi Oseguera - Pulmonary nodule right lower lung lobe", is a wedge biopsy of lung which measures 6.0 x 4.0 x 0.8 cm. A staple line is present which measures approximately 4.0 cm in greatest dimension. The pleural surface is smooth and dark red. The pleural surface is inked green. Cut sections through the specimen show a fairly well-circumscribed and somewhat soft nodule, which measures 1.3 cm in greatest dimension. The nodule is pink-kasper and it is located 0.3 cm away from the overlying pleural surface. A lifeline representatives section of the nodule is frozen. The frozen remnant is submitted in A1. In addition, a smear is made of the nodule. The remainder of the nodule is submitted in block A2. Block A3 contains lifeline representatives sections of normal lung parenchyma away from the nodule. (SKM:nish; 03/04/2019) . . Frozen section performed at [facility], [facility] [address], [place] [address]. [facility] . 02 Diagnosis: A. 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 [facility] [place] [address] PATHOLOGY RPT PROCEDURE Name: ABDI OSEGUERA Room #: 215-P ADM IN M.R.#: [id number] Admission: 03/04/19 Date of : 64 Discharge: Report #: [id number] Path Case #: [id number] - Stapled margins free of malignancy. - Visceral pleural margin is 3 mm away. . B. Lung, right lower lobe lung, steatosis: - Bronchial margin free of malignancy. - Vessels showing no evidence of malignancy. - Seven (7) hilar lymph nodes showing reactive changes along with abundant pigmented macrophages without any malignancy (0/7). - Background lung parenchyma showing congestion and reactive changes without any evidence of malignancy. . (IUV:mml; 03/07/2019) . . . Surgical Pathology Cancer Case Summary . Protocol posting date: July 2016 . LUNG: Procedure- Lobectomy Specimen Laterality- Right Tumor Site- Lower lobe of lung Tumor Size- 1.3 cm in greatest dimensions Tumor Focality- Single tumor Histologic Type- Atypical carcinoid tumor Histologic Grade- G2: Moderately differentiated Spread Through Air Spaces- Not identified Visceral Pleura Invasion- Not identified Lymphovascular Invasion- Not identified Direct Invasion of Adjacent Structures- No adjacent structures present Margins- All margins are uninvolved by tumor Margins examined: Bronchial, Vascular and Visceral Pleura Distance of invasive carcinoma from closest margin (centimeters): 0.3 cm Specify closest margin: Visceral pleura Treatment Effect- No known presurgical therapy Regional Lymph Nodes- Number of Lymph Nodes Examined: 7 Specify david station(s) examined: Hilar nodes . . Pathologic Stage Classification (pTNM, AJCC 8th Edition) . TNM Descriptors- None Primary Tumor (pT) pT1b: Tumor >1 cm but =2 cm in greatest dimension Regional Lymph Nodes (pN) pN0: No regional lymph node metastasis . Distant Metastasis (pM): pMx (unknown) [address] [address] PATHOLOGY RPT PROCEDURE Name: ArianeANDRESABDI BUTT Room #: 215-P [facility] IN M.R.#: [id number] Admission: 03/04/19 Date of : 64 Discharge: Report #: [id number] Path Case #: [id number] . (IUV:mml; 03/07/2019) [facility] 03/07/2019 1551 Local . 02 Comment: Multiple properly-controlled immunohistochemical stains are performed to characterize the neoplasm: . Synaptophysin: The tumor shows strong granular reactivity Chromogranin: The tumor shows strong granular reactivity AE1/AE3: The tumor is non-reactive Ki-67: Proliferation marker shows approximately 6-7% proliferative activity within the tumor, therefore supporting the diagnosis of an atypical carcinoid tumor . Dr. Yair Harvey has seen lifeline representatives sections of this tumor and concurs with my diagnosis. . (IUV:mml; 03/07/2019) . 02 Electronically signed: . Laura Lawson MD, Pathologist NPI- [id number] . 01 Gross description: . A. PLEASE SEE FROZEN SECTION GROSS DESCRIPTION . B. Received in formalin labeled "Abdi Oseguera, right lung lower lobe" is a 222 g lung lobectomy specimen measuring 15.5 x 10.7 x 3.3 cm. The pleura is red-brown and smooth with multiple staple lines at the hilum and along the parenchyma. The staple lines are removed and the bronchi are opened to reveal no evidence of tumor involvement. The hilum displays multiple hardin-black possible lymph nodes ranging from 0.5-0.8 cm in greatest dimension. Upon sectioning, the cut surface is red-brown without definitive lesions or tumors. Synchro Assembler sections are submitted as follows: B1-B2 vascular and bronchial margins B3 multiple whole lymph nodes from hilum B4-B6 lifeline representatives lung parenchyma [place] 03/06/2019[place] SYC/C 03/07/2019 0924 Local . 02 Pathologist provided ICD-10: C34.31 . 02 CPT . 305786, [id number], [id number], [id number], [id number], [id number] Specimen Comment: A courtesy copy of this report has been sent to [phone] [facility] [address] [place] [address] PATHOLOGY RPT PROCEDURE Name: ABDI OSEGUERA Room #: 215-P ADM IN M.R.#: [id number] Admission: 03/04/19 Date of : 64 Discharge: Report #: [id number] Path Case #: [id number] Specimen Comment: Report sent to Performed at: [address], [place] [id number] MD Vikas Boothe MD Phone: [phone] [facility]formed at: [facility] [address] [place], [place] [id number] MD Laura Lawson MD Phone: [phone]
--- NOTE | 2019-03-07 17:19 | NUR ---
FAXED CLINICAL UPDATE TO [facility] SPOKE WITH ABIODUN IN ADM SHE RECEIVED UPDATE. DP TO FOLLOW.
--- NOTE | 2019-03-07 19:10 | NUR ---
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 PT TOO 2 NORCO PO FOR PAIN AROUND 1850. WILL MONITOR
[2019-03-07 19:55] VITALS: BP 109/61
[2019-03-08 04:42] VITALS: BP 110/63
--- NOTE | 2019-03-08 05:49 | NUR ---
ASSUMED PT CARE AT 1900, PT ALERT AND ORIENTEDX4, COMPLAINED OF PAIN AT THE CHEST TUBE SITE, MEDICATED PRN ORDERD WITH PARTIAL RELIEF, CHEST TUBE WITH AN AIRLEAK, DRESSING REINFORCED, VS STABLE, ASSESSMENTS CHARTED, SR/SB ON THE MONITOR, RESTED WELL THROUGH THE NIGHT, WILL CONTINUE TO MONITOR
[2019-03-08 08:00] VITALS: BP 121/78
--- NOTE | 2019-03-08 10:34 | NUR ---
spoke with patient he is hopefult to return to his apt at [facility] at ma. Sp with Audra the RN at [facility] who reports if patient to ma with a drain they cannot accomate at [facility]. Audra reports they are independent living they are [facility]. She reports patient would need to be independent prior to return to apt.
--- NOTE | 2019-03-08 16:55 | NUR ---
AAOX4. CALM, COOPERATIVE. MEDICATED FOR PAIN Q4H ORDERED/INDICATED. CT PATENT, SEROSANGUINOUS DRNG. SR/SB PER TELE, DENIES CP. VOIDING PER URINAL. WILL CONTINUE TO FOLLOW CLOSELY.
[2019-03-08 20:18] VITALS: BP 126/72
[2019-03-09 00:15] VITALS: BP 153/70
[2019-03-09 04:38] VITALS: BP 132/82
--- NOTE | 2019-03-09 05:48 | NUR ---
ASSUMED PT CARE AT 1900. PT IS ALERT AND ORIENTED WITH NO SIGN OF DISTRESS NOTED IN PT. PT IS ALERT AND ORIENTED. CHEST TUBE IN PLACE. FALL PRECAUTION IN PLACE. CALL LIGHT WITHIN REACH. PAIN MEDICATION ADMINISTERED REQUESTED FOR PAIN BY PATIENT. DENIES ANY FURTHER NEEDS AT THIS TIME.
[2019-03-09 08:38] VITALS: BP 141/79
[2019-03-09 09:53] LABS: HEMOGLOBIN 13.5 gm/dL (14.0-18.0); MCV 97.2 fL (80.0-100.0); RBC 4.22 mil/uL (4.50-6.00); RDW 12.7 % (10.5-14.5); WBC 7.8 thou/uL (4.0-11.0)
--- NOTE | 2019-03-09 11:49 | NUR ---
Pt has protein calorie malnutrition. Sending ensure with all meals. Recommend obtain labs for folate, vitamin D, and B12 levels
[2019-03-09 12:19] VITALS: BP 112/78
--- NOTE | 2019-03-09 14:19 | NUR ---
spoke with patient who reports apprehesive to return directly to apt upon dc. He is nervous with care. Discussed post acute care at [facility] on campus of his apt. He is agreeable. Faxed referral to [facility] who sumitted for auth. RECEIVED AUTH TODAY FOR 03/10/19 for post acute care. [facility] will call insurance if no dc in am and extend auth. AUTH #[id number]
--- NOTE | 2019-03-09 16:37 | NUR ---
PT CARE ASSUMED APPROX 0700. ASSESSMENTS CHARTED. PT DENIES SOA. REPORTS ADEQUATE PAIN MANAGEMENT OF RIGHT LATERAL CHEST/INCISION. VSS. CHEST TUBE TO WATERSEAL AT THIS TIME. NO DISTRESS NOTED. PT UP WITH P/T. STEADY GAIT. COMPLIANT WITH USE OF I.S. TOLERATING POC. DENIES QUESTIONS OR CONCERNS REGARDING POC.
[2019-03-09 18:28] VITALS: BP 132/81
[2019-03-09 20:02] VITALS: BP 117/79
[2019-03-10 03:34] VITALS: BP 112/73
--- NOTE | 2019-03-10 05:08 | NUR ---
ASSESSMENT: PT REMAIN ALERT AND ORIENT TIMES FOUR. UP AD [place]MAN[place]. CT NOTED WITH SS OUTPUT. C/O PAIN AT CT SITE AND INCISIONAL PAIN. PRN PAIN MEDS GIVEN WITH GOOD RESULTS. PT SLEPT MOST OF THE NIGHT. LLE CAST INTACT. LEFT TL PICC INTACT. WILL CONTINUE TO MONITOR, SLOW PROGRESS.
[2019-03-10 07:40] VITALS: BP 140/87
[2019-03-10 10:30] VITALS: BP 119/68
--- NOTE | 2019-03-10 15:12 | NUR ---
[facility] SNF can accept today or tomorrow. Auth in place for short snf stay before returning to his [facility] apt there. Pt is agreeable. Awaiting chest tube to be dc'd;hopefully today. CM to arrange dc to the snf once medically cleared.
[2019-03-10 15:40] VITALS: BP 118/72
--- NOTE | 2019-03-10 17:07 | NUR ---
PT CARE ASSUMED APPROX 0700. ASSESSMENTS CHARTED. DENIES SOA. REPORTS ADEQUATE PAIN MANAGEMENT OF RIGHT LATERAL CHEST. VSS. UP WITH STEADY GAIT. CT CLAMPED FOR MOST OF SHIFT. REMOVED AT THIS TIME. PT TOLERATED WELL. DENIES QUESTIONS OR CONCERNS REGARDING POC. TOLERATING POC. NO DISTRESS NOTED.
[2019-03-10 19:19] VITALS: BP 117/76
[2019-03-11 04:19] VITALS: BP 104/61
--- NOTE | 2019-03-11 05:10 | NUR ---
ASSUMED PT CARE AT 1900. PT IS ALERT AND ORIENTED. NO SIGN OF DISTRESS NOTED. ASSESSMENT COMPLETED AND DOCUMENTED. SCHEDULED MEDS ADMINISTERED TO PT. PT AMBULATES. PAIN MEDICATION ADMINISTERED PER PATIENT REQUEST. CONTINUE TO MONITOR PATIENT. DENIES ANY FURTHER NEEDS AT THIS TIME.
[2019-03-11 07:50] VITALS: BP 115/80
[2019-03-11] MEDS ORDERED: MECLIZINE HCL25 MG PO (10:19)
[2019-03-11 11:03] VITALS: BP 115/80
[2019-03-11 16:00] VITALS: BP 114/78
--- NOTE | 2019-03-11 17:03 | NUR ---
PT CARE ASSUMED APPROX 0700. ASSESSMENTS CHARTED. PT DENIES SOA. REPORTS ADEQUATE PAIN MANAGEMENT OF RIGHT LATERAL POST CHEST TUBE SITE. PT UP WITH STEADY GAIT. VSS. APPROVED FOR DISCHARGE AT THIS TIME. PT UPDATED TO POC AND TRANSPORTATION PLANS. DENIES QUESTIONS OR CONCERNS REGARDING POST HOSPITAL CARES. ATTEMPTS MADE TO CALL REPORT TO RECEIVING FACILITY. THIS NURSE SPOKE TO STAFF MEMBER THAT DENIED KNOWING OF TRANSFER AND DID NOT WANT TO TAKE REPORT. CASE MANAGEMET AWARE AND THIS NURSE WILL MAKE MORE ATTEMPTS. RIGHT LATERAL CHEST DSG TO REMOVED PRIOR TO DISMISSAL PER DR CONNOLLY ORDERS. INCISION C/D/I. IV OUT, TELE BOX OFF. WILL MONITOR PT WHILE HE AWAITS TRANSPORTATION.
--- NOTE | 2019-03-11 17:21 | NUR ---
PT WAS GOING TO DISCHARGE TODAY TO [facility] FOR SKILLED STAY BUT AUTH IS STILL PENDING. SPOKE WITH ABIODUN AND SHE IS TRYING TO CALL [facility] INSURANCE TO VERIFY AUTH. SO PT MIGHT NOT DC TODAY. DC ORDERS/SUMMARY HAVE BEEN FAXED AND RECEIVED,
[2019-03-11 18:03] VITALS: BP 115/80
--- NOTE | 2019-03-11 18:14 | NUR ---
AUTH UNAPPROVED FOR PT TO GO TO SNF. BRITTNEY PATTERSON APPROVED FOR PT TO JUST RETURN TO ASSISTED LIVING. PT AGREEABLE. DISCHARGE PAPERWORK REVIEWED WITH PT. HE DENIES QUESITONS OR CONCERNS. PT HAS LEFT UNIT.
== END 2019-03-11 18:14 | DRG 164 ==
LOC: TBA 05:53 → ICU 05:53 → 2N 05:53 → TBA 09:56 → ICU 14:01 → TBA 14:44 → 2N 03-05 12:08
PROVIDERS: Physician Assistant; ADMIT Surgery Vascular Surgery
PROC: 0BTF4ZZ Resection of Right Lower Lung Lobe, Percutaneous Endoscopic Approach (ICD-10-PCS; principal; 2019-03-04)
DX: C34.31 Malignant neoplasm of lower lobe, right bronchus or lung (principal); B20 Human immunodeficiency virus [HIV] disease; J93.9 Pneumothorax, unspecified; C46.9 Kaposi's sarcoma, unspecified; A04.72 Enterocolitis due to Clostridium difficile, not specified as recurrent; F02.80 Dementia in other diseases classified elsewhere, unspecified severity, without behavioral disturbance, psychotic disturbance, mood disturbance, and anxiety; F01.50 Vascular dementia, unspecified severity, without behavioral disturbance, psychotic disturbance, mood disturbance, and anxiety; F32.9 Major depressive disorder, single episode, unspecified; G89.4 Chronic pain syndrome; K21.9 Gastro-esophageal reflux disease without esophagitis; I10 Essential (primary) hypertension; F17.210 Nicotine dependence, cigarettes, uncomplicated; B19.20 Unspecified viral hepatitis C without hepatic coma; R42 Dizziness and giddiness; Z87.01 Personal history of pneumonia (recurrent); Z80.0 Family history of malignant neoplasm of digestive organs; Z88.1 Allergy status to other antibiotic agents; Z86.19 Personal history of other infectious and parasitic diseases; Z88.8 Allergy status to other drugs, medicaments and biological substances; Z79.891 Long term (current) use of opiate analgesic; Z84.89 Family history of other specified conditions; Z79.899 Other long term (current) drug therapy
CPT/HCPCS: 10078; 10081; 27000; 47405; 50010; 50101; 50417; 50455; 50497; 50607; 50649; 50739; 50740; 51687; 52191; 52265; 52266; 52301; 52303; 54118; 56462; 56524; 56525; 56526; 56527; 56528; 62110; 62900; 65040; 65135; 70005